=== PATIENT | male | born 1940 | race Caucasian/White ===

== ENCOUNTER → 2018-05-26 15:46 | Outpatient (CLI) | payer MEDICARE, BC, SELFPAY ==
[2018-05-26 16:04] LABS: Basophils # 0.1 K/mm3 (0-0.2); Eosinophils # 0.3 K/mm3 (0.0-0.4); Eosinophils % 4.5 % (0.1-12.0); Hematocrit 41.8 % (42.0-52.0); Lymphocytes # 1.9 K/mm3 (0.7-4.5); Lymphocytes % 24.9 K/mm3 (10-50); Mean Corpuscular HGB Conc 31.2 g/dL (31.8-35.4); Mean Corpuscular Hemoglobin 32.6 pg (27.0-31.2); Mean Corpuscular Volume 104.4 fl (80-94); Mean Platelet Volume 7.4 fl (7.4-10.4); Monocytes # 0.6 K/mm3 (0.1-1.0); Monocytes % 7.6 % (1.7-9.3); Neutrophils # 4.7 K/mm3 (1.8-7.8); Platelet Count 289 K/mm3 (142-424); Red Cell Distribution Width 13.6 % (11.5-17.5); White Blood Count 7.6 K/mm3 (4.8-10.8)
[2018-05-26 17:00] LABS: Alanine Aminotransferase 19 U/L (12-78); Albumin Level 3.6 gm/dL (3.4-5.0); Albumin/Globulin Ratio 1.1 (1.1-1.8); Alkaline Phosphatase 76 U/L (46-116); Anion Gap 12.1 mEq/L (5-15); Aspartate Amino Transferase 20 U/L (15-37); Bilirubin,Total 0.7 mg/dL (0.2-1.0); Blood Urea Nitrogen 18 mg/dL (7-18); Calcium 10.2 mg/dL (8.5-10.1); Carbon Dioxide 29 mmol/L (21.0-32.0); Chloride 100 mmol/L (98-107); Creatinine,Serum 1.42 mg/dL (0.70-1.30); Estimated Glomerular Filt Rate 48 ml/min (>60); GFR (African American) 58 ML/MIN (>60); Globulin 3.2 gm/dl (1.3-3.2); Glucose 171 mg/dL (74-106); Potassium 4.1 mmoL/L (3.5-5.1); Sodium 137 mmol/L (136-145); T4 (Thyroxine) 6.8 ug/dl (4.7-13.3); Thyroid Stimulating Hormone 3.06 uIU/ml (0.358-3.740); Total Protein,Serum 6.8 gm/dL (6.4-8.2)
[2018-05-28 17:59] LABS: Folate >20.0 ng/mL (>3.0); Vitamin B12 1288 pg/mL (232-1245)
[2018-05-30 17:43] LABS: Vitamin B1 122.3 nmol/L (66.5-200.0)
== END ==
PROVIDERS: Visit Provider Family Medicine
DX: E03.9 Hypothyroidism, unspecified (principal); E53.8 Deficiency of other specified B group vitamins; K70.30 Alcoholic cirrhosis of liver without ascites
CPT/HCPCS: 36415; 80053; 82607; 82746; 84425; 84436; 84443; 85025

== ENCOUNTER → 2018-08-26 12:39 | Outpatient (CLI) | payer MEDICARE, BC, SELFPAY ==
--- NOTE | 2018-08-26 12:58 | CT_ITS ---
CT abdomen pelvis w con CLINICAL INDICATION: Left renal mass follow-up ITS.REASON: renal mass ORDERING PHYSICIAN: Franco Felix MD PATIENT AGE: 78 years COMPARISON: 09 10 17 TECHNIQUE: Axial images obtained with sagittal and coronal reformats. All CT scans at the facility use one or more dose reduction, viz: automated exposure control, ma/kV adjustment per patient size (including targeted exams where dose is matched to indication, i.e. head), or iterative reconstruction technique. PROCEDURE: Oral Contrast: None IV Contrast: 75 mL of Isovue-370. FINDINGS: There is peripheral opacification in the right lung base posterior laterally. This does not appear significantly changed. There is some minimal pleural fluid noted in this region as well. The liver, gallbladder, spleen, adrenal glands, and pancreas have an unremarkable appearance. The right kidney has an unremarkable appearance as well. There is a large complex left renal cyst arising from the lower pole of the left kidney anteriorly. This measures up to 16 cm transverse, 16 cm AP, and 17 cm cephalad to caudad. Previously this contained areas of increased density which was felt to be due to superimposed hemorrhage. The internal hemorrhage of the cyst has mostly resolved. There is some minimal peripheral calcification of the cyst as before.. The medial aspect of the cyst extends across the midline in the anterior aspect is a millimeters deep to the abdominal wall. The cyst is compressing the left kidney superiorly. There is no evidence of breath. No adenopathy. There is mild stranding of the perinephric renal fat on the left posteriorly. Along the lower aspect of the dominant cyst there is a lobulation which is cystic measuring 2.9 x 4.4 cm. There is a lobular component also anteriorly and medially with partial calcification of the wall. Atheromatous changes involving the proximal aspect of the left renal artery with moderate to severe stenosis of at least 50-75% Unremarkable appendix. No intestinal obstruction or free air. There is diverticulosis of the junction of the descending and sigmoid colon. No evidence of diverticulitis. No ascites. No focal inflammatory change. There is diffuse calcification of the aorta and its branches with minimal ectasia of the inferior aspect of the aorta. No acute bony anomalies evident. IMPRESSION: 1. Enlarging complex left renal cyst. Bosniak class III. 2. Moderate to high-grade left renal artery stenosis. 3. Sigmoid diverticulosis
[2018-08-26 13:14] LABS: Blood Urea Nitrogen 20 mg/dL (7-18); Creatinine,Serum 1.49 mg/dL (0.70-1.30); Estimated Glomerular Filt Rate 45 ml/min (>60); GFR (African American) 55 ML/MIN (>60)
== END ==
PROVIDERS: Family Provider Family Medicine; PCP Family Medicine; Visit Provider Urology
DX: N28.89 Other specified disorders of kidney and ureter (principal)
CPT/HCPCS: 36415; 74177; 82565; 84520; Q9967

== ENCOUNTER → 2018-10-27 17:35 | Outpatient (CLI) | payer MEDICARE, BC, SELFPAY ==
[2018-10-27 17:38] LABS: Adenovirus F 40/41, stool Not Detected (NotDetected); Astrovirus Not Detected (NotDetected); Campylobacter Not Detected (NotDetected); Cryptosporidium Not Detected (NotDetected); Cyclospora Cayetanesis Not Detected (NotDetected); Entamoeba histolytica Not Detected (NotDetected); Enteroaggregative E coli Not Detected (NotDetected); Enteropathogenic E coli Not Detected (NotDetected); Enterotoxigenic E coli Not Detected (NotDetected); Giardia lamblia Not Detected (NotDetected); Norovirus Not Detected (NotDetected); Plesimonas Shigalloides, PCR Not Detected (NotDetected); Rotavirus A Not Detected (NotDetected); Salmonella, PCR Not Detected (NotDetected); Sapovirus Not Detected (NotDetected); Shiga-like toxin E coli Not Detected (NotDetected); Shigella Enterovasive E coli Not Detected (NotDetected); Vibrio Cholerae Not Detected (NotDetected); Vibrio, PCR Not Detected (NotDetected); Yersinia Entercolitica, PCR Not Detected (NotDetected)
[2018-10-27 21:31] LABS: Clostridium Difficile A/B, PCR Detected (NotDetected)
== END ==
PROVIDERS: Visit Provider Family Medicine
DX: R19.7 Diarrhea, unspecified (principal)
CPT/HCPCS: 87507

== ENCOUNTER → 2018-12-02 15:31 | Outpatient (CLI) | payer MEDICARE, BC, SELFPAY ==
[2018-12-02 15:54] LABS: Basophils # 0.1 K/mm3 (0-0.2); Eosinophils # 0.3 K/mm3 (0.0-0.4); Eosinophils % 2.3 % (0.1-12.0); Hematocrit 37.7 % (42.0-52.0); Hemoglobin 11.4 g/dL (14.1-18.0); Lymphocytes # 1.9 K/mm3 (0.7-4.5); Lymphocytes % 15.7 % (10-50); Mean Corpuscular HGB Conc 30.2 g/dL (31.8-35.4); Mean Corpuscular Hemoglobin 31.9 pg (27.0-31.2); Mean Corpuscular Volume 105.6 fl (80-94); Mean Platelet Volume 7.2 fl (7.4-10.4); Monocytes # 0.7 K/mm3 (0.1-1.0); Monocytes % 5.5 % (1.7-9.3); Neutrophils # 8.9 K/mm3 (1.8-7.8); Neutrophils % 75.5 % (37.0-80.0); Platelet Count 403 K/mm3 (142-424); Red Blood Count 3.57 M/mm3 (4.60-6.20); Red Cell Distribution Width 15.7 % (11.5-17.5); White Blood Count 11.8 K/mm3 (4.8-10.8)
[2018-12-02 18:00] LABS: Alanine Aminotransferase 21 U/L (12-78); Albumin Level 3.4 gm/dL (3.4-5.0); Albumin/Globulin Ratio 1.1 (1.1-1.8); Alkaline Phosphatase 59 U/L (46-116); Anion Gap 18.1 mEq/L (5-15); Aspartate Amino Transferase 24 U/L (15-37); Bilirubin,Total 0.6 mg/dL (0.2-1.0); Blood Urea Nitrogen 20 mg/dL (7-18); Calcium 8.9 mg/dL (8.5-10.1); Carbon Dioxide 24 mmol/L (21.0-32.0); Chloride 100 mmol/L (98-107); Creatinine,Serum 1.31 mg/dL (0.70-1.30); Estimated Glomerular Filt Rate 53 ml/min (>60); GFR (African American) 64 ML/MIN (>60); Globulin 3.1 gm/dl (1.3-3.2); Glucose 105 mg/dL (74-106); Potassium 4.1 mmoL/L (3.5-5.1); Sodium 138 mmol/L (136-145); T4 (Thyroxine) 9.8 ug/dl (4.7-13.3); Thyroid Stimulating Hormone 7.04 uIU/ml (0.358-3.740); Total Protein,Serum 6.5 gm/dL (6.4-8.2)
[2018-12-04 12:35] LABS: Folate >20.0 ng/mL (>3.0); Vitamin B12 1351 pg/mL (232-1245)
== END ==
PROVIDERS: Visit Provider Family Medicine
DX: E03.9 Hypothyroidism, unspecified (principal); E53.8 Deficiency of other specified B group vitamins; I48.0 Paroxysmal atrial fibrillation
CPT/HCPCS: 36415; 80053; 82607; 82746; 84436; 84443; 85025

== ENCOUNTER → 2019-05-31 13:45 | Outpatient (POV) | payer MEDICARE, BC, SELFPAY | PROVIDERS: Visit Provider Dermatology | DX: Z00.00 Encounter for general adult medical examination without abnormal findings (principal) ==

== ENCOUNTER → 2019-08-16 08:25 | Outpatient (POV) | payer MEDICARE, BC, SELFPAY | PROVIDERS: Visit Provider Dermatology | DX: Z00.00 Encounter for general adult medical examination without abnormal findings (principal) ==

== ENCOUNTER → 2019-09-06 14:16 | Outpatient (POV) | payer MEDICARE, BC, SELFPAY | PROVIDERS: Visit Provider Dermatology | DX: Z00.00 Encounter for general adult medical examination without abnormal findings (principal) ==

== ENCOUNTER → 2019-10-18 14:26 | Outpatient (CLI) | payer MEDICARE, BC, SELFPAY ==
[2019-10-18 15:07] LABS: Basophils % 0.3 % (0.1-2.0); Eosinophils # 0.1 K/mm3 (0.0-0.4); Eosinophils % 0.8 % (0.1-12.0); Hematocrit 37.3 % (42.0-52.0); Hemoglobin 11.9 g/dL (14.1-18.0); Lymphocytes # 1.2 K/mm3 (0.7-4.5); Lymphocytes % 9.6 % (10-50); Mean Corpuscular HGB Conc 31.8 g/dL (31.8-35.4); Mean Corpuscular Hemoglobin 32.7 pg (27.0-31.2); Mean Corpuscular Volume 102.6 fl (80-94); Mean Platelet Volume 8.5 fl (7.4-10.4); Monocytes # 0.9 K/mm3 (0.1-1.0); Monocytes % 7.3 % (1.7-9.3); Neutrophils # 10.5 K/mm3 (1.8-7.8); Neutrophils % 82.1 % (37.0-80.0); Platelet Count 335 K/mm3 (142-424); Red Blood Count 3.63 M/mm3 (4.60-6.20); Red Cell Distribution Width 15.7 % (11.5-17.5); White Blood Count 12.8 K/mm3 (4.8-10.8)
[2019-10-18 17:28] LABS: Alanine Aminotransferase 13 U/L (12-78); Albumin Level 3.4 gm/dL (3.4-5.0); Albumin/Globulin Ratio 0.9 (1.1-1.8); Alkaline Phosphatase 84 U/L (46-116); Anion Gap 17.3 mEq/L (5-15); Aspartate Amino Transferase 16 U/L (15-37); Bilirubin,Total 0.3 mg/dL (0.2-1.0); Blood Urea Nitrogen 27 mg/dL (7-18); Calcium 10.9 mg/dL (8.5-10.1); Carbon Dioxide 28 mmol/L (21.0-32.0); Chloride 103 mmol/L (98-107); Creatinine,Serum 1.85 mg/dL (0.70-1.30); Estimated Glomerular Filt Rate 35 ml/min (>60); GFR (African American) 43 ML/MIN (>60); Globulin 3.7 gm/dl (1.3-3.2); Glucose 113 mg/dL (74-106); Potassium 4.3 mmoL/L (3.5-5.1); Sodium 144 mmol/L (136-145); T4 (Thyroxine) 8.9 ug/dl (4.7-13.3); Thyroid Stimulating Hormone 1.09 uIU/ml (0.358-3.740); Total Protein,Serum 7.1 gm/dL (6.4-8.2)
[2019-10-20 11:18] LABS: Folate >20.0 ng/mL (>3.0); Vitamin B12 1104 pg/mL (232-1245)
== END ==
PROVIDERS: Visit Provider Family Medicine
DX: E03.9 Hypothyroidism, unspecified (principal); E78.5 Hyperlipidemia, unspecified; E53.8 Deficiency of other specified B group vitamins; K70.30 Alcoholic cirrhosis of liver without ascites; Z12.5 Encounter for screening for malignant neoplasm of prostate
CPT/HCPCS: 36415; 80053; 82607; 82746; 84436; 84443; 85025; G0103

== ENCOUNTER → 2019-10-25 14:02 | Outpatient (POV) | payer MEDICARE, BC, SELFPAY | PROVIDERS: Visit Provider Dermatology | DX: Z00.00 Encounter for general adult medical examination without abnormal findings (principal) ==

== ENCOUNTER → 2019-11-22 14:06 | Outpatient (POV) | payer MEDICARE, BC, SELFPAY | PROVIDERS: Visit Provider Dermatology | DX: Z00.00 Encounter for general adult medical examination without abnormal findings (principal) ==

== ENCOUNTER → 2019-12-09 13:45 | Outpatient (CLI) | payer MEDICARE, BC, SELFPAY ==
--- NOTE | 2019-12-09 13:45 | CT_ITS ---
PROCEDURE: CT ABDOMEN PELVIS WO CON CLINICAL INDICATION: renal cyst COMPARISON: ABDPELW CT abdomen pelvis w con from 08/26/2018 TECHNIQUE: Axial images obtained with sagittal and coronal reformats. All CT scans at the facility use one or more dose reduction, viz: automated exposure control, ma/kV adjustment per patient size (including targeted exams where dose is matched to indication, i.e. head), or iterative reconstruction technique. FINDINGS: LOWER THORAX: No acute finding. The soft tissue densities along the pleuroparenchymal surfaces of the anterior lateral and posterior aspects of the right hemithorax are unchanged which would favor chronic scarring ABDOMEN & PELVIS: The previously described multiloculated complex left renal cyst is again noted appearing increased over the interval. This measures at least 21.7 x 24.4 x 26.3 centimeters. It was approximately 16 by 16 by 17 centimeters previously. There is increasing mass effect on adjacent structures. There is new moderate left pyelocaliectasis. A nonspecific new soft tissue density 3.1 x 3.1 centimeters image 29 series 3 is seen possibly compressing the proximal left ureter. Neoplasm/lymphadenopathy must be considered. Additional mechanical compression of the ureter from the enlarging mass is a possibility. The liver, spleen, pancreas, adrenal glands, and kidneys show no acute finding. No intestinal obstruction or free air. There are scattered diverticuli. No evidence of appendicitis or diverticulitis. A small amount of free fluid is seen in the pelvis. No acute bony anomalies. There is widespread atherosclerosis with arterial calcifications in the abdominal aorta and iliac mesenteric and renal vessels. High-grade stenosis of the left common iliac artery and the bilateral renal arteries and superior mesenteric artery are not excluded. CTA could further evaluate. IMPRESSION: Interval growth of complex left renal origin mass with new soft tissue density at the left renal hilum possibly compressing the proximal ureter with associated moderate renal obstruction with pyelocaliectasis. Urologic consultation is recommended. Small amount of free fluid is seen in the pelvis. Extensive atherosclerosis Dictated by: David Sifuentes 12/09/2019 15:30 Electronically signed by David Sifuentes in [facility] 12/09/2019 15:30
== END ==
PROVIDERS: PCP Family Medicine; Visit Provider Urology
DX: N28.1 Cyst of kidney, acquired (principal)
CPT/HCPCS: 74176

== ENCOUNTER 2020-02-17 13:00 | Outpatient (RCR) | payer MEDICARE, BC, SELFPAY ==
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
== END 2020-02-17 14:00 | disposition home or self-care (01) ==
LOC: PT 13:00
PROVIDERS: PCP Family Medicine; Visit Provider Family Medicine
DX: M54.5 Low back pain (principal)
CPT/HCPCS: 97010; 97014; 97110; 97163; 97530; G0283